=== PATIENT | female | born 1995 | race Two or more races ===

== ENCOUNTER 2020-03-07 22:11 | Emergency (ER) | payer BC, MEDICARE ==
[~2020-03-07] VITALS: Ht 152.4 cm; Wt 59.0 kg
[2020-03-08] MEDS ORDERED: ONDANSETRON 4MG ODT PO ONE (00:45)
[2020-03-08 01:21] LABS: BASOPHILS % 0.3 % (0.0-2.0); HEMOGLOBIN. 13.9 g/dL (12.0-16.0); LYMPHOCYTES % 25.7 % (20.0-50.0); MEAN CORPUSCULAR HEMOGLOBIN 31.2 pg (28.0-32.0); MEAN PLATELET VOLUME 8.1 fl (7.4-10.4); MONOCYTES % 8.1 % (2.0-8.0); NEUTROPHILS % 64.9 % (40.0-76.0); PLATELET 231 x1000/uL (130-400); RED BLOOD CELL COUNT 4.45 mill/uL (4.2-5.4); RED CELL DISTRIBUTION WIDTH 12.9 % (11.6-14.6)
[2020-03-08 01:25] LABS: CHLORIDE 107 mEq/L (98-107)
[2020-03-08 01:27] LABS: CLARITY URINE CLOUDY (CLEAR); COLOR URINE YELLOW (YELLOW); KETONES URINE NEGATIVE (NEGATIVE); LEUKOCYTE ESTERASE URINE NEGATIVE (NEGATIVE); NITRITE URINE NEGATIVE (NEGATIVE); OCCULT BLOOD URINE NEGATIVE (NEGATIVE); PH URINE >=9.0 (4.5-8.0); PROTEIN URINE NEGATIVE (NEGATIVE); SPECIFIC GRAVITY URINE 1.019 (1.005-1.030)
[2020-03-08 02:01] VITALS: BP 120/62
== END 2020-03-08 02:08 | disposition home or self-care (01) ==
LOC: ER 22:11
DX: R11.2 Nausea with vomiting, unspecified (principal); R10.9 Unspecified abdominal pain
CPT/HCPCS: 36415; 80053; 81003; 81025; 83690; 85025; 93005; 99284; Q0162